=== PATIENT | male | born 1955 ===

== ENCOUNTER → 2018-08-15 | Outpatient (CLI) | payer OTHER | LOC: FIMAGING 14:03 | PROVIDERS: ATTEND Physician Assistant Medical | DX: R26.9 Unspecified abnormalities of gait and mobility (principal); R41.89 Other symptoms and signs involving cognitive functions and awareness; R93.89 Abnormal findings on diagnostic imaging of other specified body structures ==

== ENCOUNTER → 2018-09-03 | Outpatient (CLI) | payer OTHER | LOC: FCPNEURO 08:06 ==